=== PATIENT | female | born 1960 | race Caucasian/White ===

== ENCOUNTER 2021-02-14 11:23 | Outpatient (REF) | payer OTHER, SELFPAY ==
--- NOTE | ~2021-02-14 | XR_ITS ---
EXAMINATION: XR KNEE, RIGHT CLINICAL INFORMATION: Right knee pain COMPARISON: None TECHNIQUE: Four views of the right knee. FINDINGS: Bone alignment is normal. No fracture or dislocation is seen. The joint spaces are normal. There is a small joint effusion. XR/XR knee RT 4V IMPRESSION: Small joint effusion otherwise unremarkable exam.
[2021-02-14 13:54] LABS: Hematocrit 39.8 % (37-47); Hemoglobin 13.1 g/dl (12.0-16.0); Mean Corpuscular HGB Conc 32.9 g/dl (31.0-35.0); Mean Corpuscular Hemoglobin 29.8 pg (27.0-33.0); Mean Corpuscular Volume 90.7 fL (80-98); Mean Platelet Volume 10.5 fL (9.4-12.3); Platelet Count 313 X10*3/uL (160-400); Red Blood Count 4.39 X10*6/uL (4.20-5.50); Red Cell Distribution Width 13.4 % (11.0-16.0); White Blood Count 8.6 X10*3/uL (4.8-10.8)
[2021-02-14 14:02] LABS: Alanine Aminotransferase 20 U/L (0-31); Albumin Level 4.1 g/dL (3.5-5.0); Alkaline Phosphatase 41 U/L (39-117); Anion Gap 13 (12-20); Aspartate Amino Transferase 13 U/L (5-31); Bilirubin Total 0.3 mg/dL (0.0-1.0); Blood Urea Nitrogen 13 mg/dL (9-16); Calcium 9.2 mg/dL (8.4-10.2); Carbon Dioxide 23 mmol/L (22-29); Chloride 107 mmol/L (96-108); Cholesterol 176 mg/dL; Estimated Glomerular Filt Rate > 60; Glucose Fasting 91 mg/dL (60-99); HDL Cholesterol 54 mg/dL; LDL Cholesterol Calculated 99 mg/dl; Potassium 4.1 mmol/L (3.3-5.1); Sodium 139 mmol/L (135-145); Total Protein 6.4 g/dL (6.5-8.0); Triglycerides 117 mg/dL
[2021-02-14 14:06] LABS: Appearance Urine HAZY; Color Urine YELLOW; Glucose Urine UA NEG (NEG); Leukocyte Esterase Urine NEG (NEG); Nitrite Urine POS (NEG); Specific Gravity - Urine 1.025 (1.005-1.025); Urine Blood NEG (NEG); Urine Ketones NEG (NEG); Urine Protein NEG (NEG-TRACE)
[2021-02-14 14:24] LABS: TSH reflex Free T4 2.85 uIU/mL (0.32-4.0); Vitamin D 25-OH Total 11.4 ng/mL (>30)
[2021-02-14 14:43] LABS: Bacteria Urine 4+ /LPF; RBC Urine 0 /HPF (0); Squamous Epithelial Cell Urine 4+ /LPF
== END 2021-02-14 11:24 | disposition home or self-care (01) ==
LOC: HO.HMGCLDS 11:23
PROVIDERS: PCP Internal Medicine; Visit Provider Internal Medicine
DX: M25.561 Pain in right knee (principal); E03.9 Hypothyroidism, unspecified; E78.5 Hyperlipidemia, unspecified; I10 Essential (primary) hypertension
CPT/HCPCS: 36415; 73564; 80053; 80061; 81001; 82306; 84443; 85027

== ENCOUNTER 2022-10-30 09:31 | Outpatient (REF) | payer OTHER, SELFPAY ==
[2022-10-30 11:16] LABS: Appearance Urine Turbid; Color Urine Yellow; Glucose Urine UA Negative (Negative); Leukocyte Esterase Urine Negative (Negative); MANUAL DIFF FLAG NO; Nitrite Urine Positive (Negative); PH 5.5 (5.0-9.0); Specific Gravity - Urine 1.025 (1.005-1.025); UMIC TRIGGER UA YES; Urine Blood Negative (Negative); Urine Ketones Negative (Negative); Urine Protein Trace mg/dL (Neg-Trace)
[2022-10-30 11:19] LABS: Bacteria Urine 4+ (None Seen); Hyaline Casts Urine 0-2 /LPF (0-2); Squamous Epithelial Cell Urine >20 /HPF (0-2); WBC Urine 0-5 /HPF (0-5)
[2022-10-30 11:22] LABS: Basophils Percent Auto 0.4 % (0-2); Eosinophils Absolute Auto 0.1 X10*3/uL (0.0-0.4); Eosinophils Percent Auto 1.8 % (0-4); Hematocrit 39.7 % (37.0-47.0); Hemoglobin 12.8 g/dl (12.0-16.0); Imm Gran Abs Auto 0.03 X10*3/uL (0.00-0.03); Imm Gran Pct Auto 0.4 % (0.0-0.4); Lymphocytes Absolute Auto 1.9 X10*3/uL (1.2-4.9); Lymphocytes Percent Auto 26.3 % (20-40); Mean Corpuscular HGB Conc 32.2 g/dl (31.0-35.0); Mean Corpuscular Hemoglobin 29.9 pg (27.0-33.0); Mean Corpuscular Volume 92.8 fL (80.0-98.0); Mean Platelet Volume 11.4 fL (9.4-12.3); Monocytes Absolute Auto 0.7 X10*3/uL (0.1-1.2); Monocytes Percent Auto 9.3 % (2-11); Neutrophils Absolute Auto 4.4 x10*3/uL (2.0-8.3); Neutrophils Percent Auto 61.8 % (45-73); Platelet Count 243 X10*3/uL (160-400); Red Blood Count 4.28 X10*6/uL (4.20-5.50); Red Cell Distribution Width 13.4 % (11.0-16.0); White Blood Count 7.1 X10*3/uL (4.8-10.8)
[2022-10-30 12:07] LABS: Alanine Aminotransferase 18 U/L (0-31); Albumin Level 3.7 g/dL (3.5-5.0); Alkaline Phosphatase 43 U/L (39-117); Anion Gap 8 (12-20); Aspartate Amino Transferase 16 U/L (5-31); Bilirubin Total 0.3 mg/dL (0.0-1.0); Blood Urea Nitrogen 14 mg/dL (9-16); Calcium 9.2 mg/dL (8.4-10.2); Carbon Dioxide 25 mmol/L (22-29); Chloride 107 mmol/L (96-108); Cholesterol 197 mg/dL; Estimated Glomerular Filt Rate > 60; Glucose Fasting 101 mg/dL (60-99); HDL Cholesterol 45 mg/dL; LDL Cholesterol Calculated 123 mg/dl; Potassium 4.6 mmol/L (3.3-5.1); Sodium 135 mmol/L (135-145); Total Protein 6.7 g/dL (6.5-8.0); Triglycerides 145 mg/dL
[2022-10-30 12:19] LABS: TSH reflex Free T4 4.23 uIU/mL (0.32-4.0); Vitamin D 25-OH Total 16.9 ng/mL (>30)
[2022-10-30 14:41] LABS: Free T4 (Free Thyroxine) 0.96 ng/dL (0.71-1.85)
== END 2022-10-30 09:32 | disposition home or self-care (01) ==
LOC: HO.HMGCLDS 09:31
PROVIDERS: PCP Internal Medicine; Visit Provider Internal Medicine
DX: E55.9 Vitamin D deficiency, unspecified (principal); E03.9 Hypothyroidism, unspecified; I10 Essential (primary) hypertension; E78.5 Hyperlipidemia, unspecified
CPT/HCPCS: 36415; 80053; 80061; 81001; 82306; 84439; 84443; 85025

== ENCOUNTER 2023-12-19 09:39 | Outpatient (REF) | payer OTHER, SELFPAY ==
[2023-12-19 14:13] LABS: Alanine Aminotransferase 18 U/L (0-31); Alkaline Phosphatase 37 U/L (39-117); Anion Gap 11 (12-20); Aspartate Amino Transferase 13 U/L (5-31); Bilirubin Total 0.3 mg/dL (0.0-1.0); Blood Urea Nitrogen 13 mg/dL (9-16); Calcium 9.5 mg/dL (8.4-10.2); Carbon Dioxide 27 mmol/L (22-29); Chloride 107 mmol/L (96-108); Cholesterol 204 mg/dL (<200); Estimated Glomerular Filt Rate > 60; Glucose Fasting 105 mg/dL (60-99); HDL Cholesterol 54 mg/dL (>40); LDL Cholesterol Calculated 117 mg/dL (<100); Potassium 3.9 mmol/L (3.3-5.1); Sodium 141 mmol/L (135-145); Total Protein 6.6 g/dL (6.5-8.0); Triglycerides 166 mg/dL (<150)
== END 2023-12-19 09:40 | disposition home or self-care (01) ==
LOC: HO.HMGCLDS 09:39
PROVIDERS: PCP Internal Medicine; Visit Provider Internal Medicine
DX: E78.5 Hyperlipidemia, unspecified (principal); I10 Essential (primary) hypertension; E03.9 Hypothyroidism, unspecified
CPT/HCPCS: 36415; 80053; 80061; 84443

== ENCOUNTER 2023-12-24 12:35 | Outpatient (AMB) | payer OTHER, SELFPAY ==
[2023-12-24 13:15] VITALS: BP 124/82; PULSE 90; O2SAT 95; BMI 37.4
--- NOTE | 2023-12-24 13:15 | MHC.PC.OV ---
Vital Signs 12/24/23 13:15 Height 5 ft 6 in Weight 232 lb BMI 37.4 BP 124/82 Blood Pressure Location Lt brachial Position Sitting Pulse 90 Pulse Source Pulse Oximeter Pulse Oximetry (%) 95 Oxygen Delivery Method Room Air Intake Visit Reasons: med f/u Intake Note: Pt is here today for a follow up visit on labs. Pt needs a refill on her medications. Allergies lisinopril Adverse Reaction (Intermediate, Verified 12/24/23 13:16) Cough losartan Adverse Reaction (Intermediate, Verified 12/24/23 13:16) Cough Medication List - Last Reconciled 12/24/23 by Amber Pace MD citalopram 10 mg PO DAILY ergocalciferol (vitamin D2) 1,250 mcg PO QWEEK fenofibrate nanocrystallized 145 mg PO DAILY levothyroxine 50 mcg PO DAILY metoprolol succinate ER 100 mg PO DAILY nifedipine ER 90 mg PO DAILY terazosin 20 mg (2 x 10 mg) PO BEDTIME triamterene-hydrochlorothiazid 37.5-25 mg 1 cap PO DAILY Tobacco use date assessed: 12/24/23 Dental Screening Dental Screen Date: 12/24/23 Did you have a dental visit in the last 12 months?: Yes Did you have a dental problem in the last 6 months where you did not have access to dental care?: No Was dental information given to patient?: Patient has dentist HPI med f/u HPI Details Patient presents for the follow-up on hypertension hypothyroidism hyperlipidemia controlled on current medications. She was diagnosed with 75% hearing loss. Patient reports chronic lower extremities edema worse when sitting for long time or at the end of the day. [facility] Medical History (Updated 12/24/23 @ 14:14 by Amber Pace MD) Normal breast exam Vitamin D deficiency Hypothyroidism Knee pain, right Hyperlipidemia HTN (hypertension) Hx of fracture of forearm Surgical History (Updated 12/24/23 @ 14:09 by Amber Pace MD) Hx of colonoscopy Family History Father Hypertension Mother Cancer of large intestine Social History Housing: House Patient Tobacco Use Status: Never used Tobacco e-Cigarette/Vaping Use: Never Used service: No Current occupational status: employed Cognitive needs: No Hearing needs: No Vision needs: No Questionnaire PHQ-9 Over the last 2 weeks, how often have you been bothered by any of the following problems? 1. Little interest or pleasure in doing things: several days 2. Feeling down, depressed, or hopeless: several days 3. Trouble falling or staying asleep, or sleeping too much: not at all 4. Feeling tired or having little energy: several days 5. Poor appetite or overeating: several days 6. Feeling bad about yourself - or that you are a failure or have let yourself or your family down: not at all 7. Trouble concentrating on things, such as reading the newspaper or watching television: not at all 8. Moving or speaking so slowly that other people could have noticed. Or the opposite - being so fidgety or restless that you have been moving around a lot more than usual: several days 9. Thoughts that you would be better off or of hurting yourself in some way: not at all Total score: 5 Depression Screening Interpretation: Negative Depression Screening Done: Yes 93644 - PHQ-9 Billing: Yes Source: Developed by Drs. Kevin Choudhary, Temi Mccauley, Boni Scanlon and colleagues, with an educational farzad from [employer]. Thrive Questionnaire Date Thrive assessed: 12/24/23 I am a: Patient What is your living situation today?: I have a steady place to live Within the past 12 months, did the food you bought not last and you didn't have the money to get more?: Often true Within the past 12 months, did you worry whether your food would run out before you got money to buy more?: Sometimes True Do you have trouble paying for medicines?: No Do you have trouble getting transportation to medical appointments?: Yes Do you have trouble paying your heating and electricity bill?: No Do you have trouble taking care of your child, family member or friend?: No Do you have trouble with day-to-day activities such as bathing, preparing meals, shopping, managing finances, etc.?: No Are you currently unemployed and looking for a job?: Yes Are you interested in more education?: I choose not to answer this question Please select the resources that you would like help with: None Currently or been in a relationship where the following occur: Controlled Financially THRIVE Score: 4 AUDIT C Alcohol Use Questionnaire (AUDIT-C) 1. How often do you have a drink containing alcohol?: 2-4 times a month 2. How many drinks containing alcohol do you have on a typical day when you are drinking?: 3 or 4 3. How often do you have six or more drinks on one occasion?: Never Total Score: 3 BERNICE-7 AMB Questionnaire BERNICE-7 Date BERNICE - 7 assessed: 12/24/23 Feeling nervous, anxious, or on edge: 0 = Not at all Not being able to stop or control worryin = Several days Worrying too much about different things: 1 = Several days Trouble relaxin = Several days Being so restless that it is hard to sit still: 0 = Not at all Becoming easily annoyed or irritable: 0 = Not at all Feeling afraid as if something awful might happen: 0 = Not at all Total BERNICE-7 score (0-4 normal; 5-9 mild; 10-14 moderate; 15-21 severe): 3 Source: Developed by Drs. Kevin Choudhary, Temi Mccauley, Boni Scanlon and colleagues, with an educational farzad from [employer]. BERNICE-7 Assessment Billing BERNICE-7 Assessment Tool: BERNICE-7 Assessment 52947 Review of Systems Const All systems reviewed & are unremarkable except as noted in HPI and below ENT Reports no additional complaints Card Reports no additional complaints Resp Reports no additional complaints GI Reports no additional complaints Reports no additional complaints Physical exam (Primary Care) Vital Signs: Last Vital Signs Pulse 90 12/24/23 13:15 BP 124/82 12/24/23 13:15 Pulse Ox 95 12/24/23 13:15 Oxygen Delivery Method Room Air 12/24/23 13:15 BMI result Body Mass Index 37.4 Tobacco/Smoking Status: Tobacco use Status Tobacco use date assessed 12/24/23 12/24/23 13:17 Patient Tobacco Use Status Never used Tobacco 12/24/23 13:17 e-Cigarette/Vaping Use Never Used 12/24/23 13:17 PHQ-9: PHQ-9 Score PHQ-9: Total score 5 12/24/23 13:17 Depression Screening Interpretation: Negative Thrive Assessment: Date of Thrive Assessment Date Thrive assessed 12/24/23 12/24/23 13:17 Currently or been in a relationship where the following occur: Controlled Financially Const General: no acute distress HENMT Face and sinus: Yes normal facial exam Neck Neck: Yes supple Resp Effort & Inspection: normal respiratory effort Auscultation: clear to auscultation bilaterally Cardio Rhythm: regular rhythm Heart sounds: S1 normal heart sound present and S2 normal heart sound present GI Inspection: Yes normal to inspection Palpation (GI): Soft to palpation Percussion: Yes normal to percussion Auscultation: normal bowel sounds Extrem Other: 2 + nonpitting edema b/l Assessment and Plan Assessment & Plan (1) HTN (hypertension): Code(s): I10 - Essential (primary) hypertension Plan: Continue current medications (2) Edema: Code(s): R60.9 - Edema, unspecified Plan: Continue Dyazide, check echocardiogram (3) Vitamin D deficiency: Code(s): E55.9 - Vitamin D deficiency, unspecified Plan: Check vitamin-D (4) Hyperlipidemia: Code(s): E78.5 - Hyperlipidemia, unspecified (5) Hypothyroidism: Code(s): E03.9 - Hypothyroidism, unspecified Plan: Continue fenofibrate (6) Obesity: Code(s): E66.9 - Obesity, unspecified Plan: Increase physical activity decrease caloric intake weight loss discussed with the patient, return in 6 months with a fasting labs before Orders: Orders CA echo transthoracic complete Today I10 - Essential (primary) hypertension, R60.9 - Edema, unspecified Vitamin D 25-OH Total Today E55.9 - Vitamin D deficiency, unspecified Comprehensive [place]. Panel Fast 6 Months E03.9 - Hypothyroidism, unspecified, E55.9 - Vitamin D deficiency, unspecified, E78.5 - Hyperlipidemia, unspecified, I10 - Essential (primary) hypertension Lipid Panel 6 Months E03.9 - Hypothyroidism, unspecified, E55.9 - Vitamin D deficiency, unspecified, E78.5 - Hyperlipidemia, unspecified, I10 - Essential (primary) hypertension TSH reflex Free T4 6 Months E03.9 - Hypothyroidism, unspecified, E55.9 - Vitamin D deficiency, unspecified, E78.5 - Hyperlipidemia, unspecified, I10 - Essential (primary) hypertension MM screening mammo BI Today I10 - Essential (primary) hypertension, R60.9 - Edema, unspecified, Z12.31 - Encounter for screening mammogram for malignant neoplasm of breast Complete Blood Count Auto Diff 6 Months E03.9 - Hypothyroidism, unspecified, E55.9 - Vitamin D deficiency, unspecified, E78.5 - Hyperlipidemia, unspecified, I10 - Essential (primary) hypertension Hemoglobin A1c 6 Months E03.9 - Hypothyroidism, unspecified, E55.9 - Vitamin D deficiency, unspecified, E78.5 - Hyperlipidemia, unspecified, I10 - Essential (primary) hypertension Vitamin D 25-OH Total 6 Months E03.9 - Hypothyroidism, unspecified, E55.9 - Vitamin D deficiency, unspecified, E78.5 - Hyperlipidemia, unspecified, I10 - Essential (primary) hypertension Medications: Refilled terazosin 20 mg (2 x 10 mg) PO BEDTIME 90 caps 3RF nifedipine ER 90 mg PO DAILY 90 tabs 3RF citalopram 10 mg PO DAILY 90 tabs 3RF levothyroxine 50 mcg PO DAILY 90 tabs 3RF ergocalciferol (vitamin D2) 1,250 mcg PO QWEEK 13 caps 3RF Coding Level of Care Code Est Pt Level 4 (85967) Diagnoses HTN (hypertension) I10 Edema R60.9 Vitamin D deficiency E55.9 Hyperlipidemia E78.5 Hypothyroidism E03.9 Obesity E66.9 Additional Codes BERNICE-7 Assessment Billing - BERNICE-7 Assessment Tool: BERNICE-7 Assessment 88955 ([id number])
== END 2023-12-24 14:14 | disposition home or self-care (01) ==
PROVIDERS: PCP Internal Medicine; Visit Provider Internal Medicine
DX: I10 Essential (primary) hypertension (principal); E66.9 Obesity, unspecified; R60.9 Edema, unspecified; Z68.37 Body mass index [BMI] 37.0-37.9, adult; E55.9 Vitamin D deficiency, unspecified; E78.5 Hyperlipidemia, unspecified; E03.9 Hypothyroidism, unspecified
CPT/HCPCS: 99214

== ENCOUNTER 2023-12-24 14:03 | Outpatient (REF) | payer OTHER, SELFPAY ==
[2023-12-24 17:38] LABS: Vitamin D 25-OH Total 35.3 ng/mL (>30)
== END 2023-12-24 14:04 | disposition home or self-care (01) ==
LOC: HO.HMGCLDS 14:03
PROVIDERS: PCP Internal Medicine; Visit Provider Internal Medicine
DX: E55.9 Vitamin D deficiency, unspecified (principal)
CPT/HCPCS: 36415; 82306

== ENCOUNTER 2024-01-09 09:00 | Outpatient (REF) | payer OTHER, SELFPAY ==
--- NOTE | ~2024-01-09 | MM_ITS ---
EXAMINATION: MM SCREENING DIGITAL BREAST TOMOSYNTHESIS, BILATERAL CLINICAL INFORMATION: Screening. Asymptomatic. COMPARISON: Mammography: Comparison is made with available priors TECHNIQUE: Digital breast mammography with tomosynthesis is performed in both the craniocaudal and mediolateral oblique views along with computer-aided detection (CAD). FINDINGS: There are scattered areas of fibroglandular density (ACR BI-RADS breast composition Category b). There are no significant masses, abnormal calcifications, or other abnormalities. MM/MM tomosynthesis screening BI IMPRESSION: No mammographic evidence of malignancy. ASSESSMENT: BI-RADS BI-RADS 1 - Negative RECOMMENDATION: Routine annual mammography screening. 1 year F/U This examination should not preclude the clinical evaluation of a suspicious palpable abnormality. This patient's information was entered into a reminder system with a target due date for their next mammogram. Electronically signed by: Rain Cole DO 01/25/2024 03:12 PM EDT
== END 2024-01-09 09:01 | disposition home or self-care (01) ==
LOC: HO.MAMMO 09:00
PROVIDERS: PCP Internal Medicine; Visit Provider Internal Medicine
DX: Z12.31 Encounter for screening mammogram for malignant neoplasm of breast (principal)
CPT/HCPCS: 77063; 77067

== ENCOUNTER → 2024-01-09 09:00 | Outpatient (BNV) | payer OTHER, SELFPAY | PROVIDERS: PCP Internal Medicine; Visit Provider Internal Medicine | DX: Z12.31 Encounter for screening mammogram for malignant neoplasm of breast (principal) | CPT/HCPCS: 77063; 77067 ==

== ENCOUNTER → 2024-01-26 14:02 | Outpatient (REF) | payer OTHER, SELFPAY ==
--- NOTE | 2024-01-26 14:05 | CA_ITS ---
Transthoracic Echocardiogram Patient (Last, First, Middle): Laura Rosales, Gender: Female Date of : 1960 Age: 63 Procedure Date: 01/26/2024 Procedure Type: Transthoracic Echocardiogram Location: OP Height: 167.64 cm Weight: 105.24 kg BSA: 2.13 m2 Heart Rate: 101 bpm BP: 124 / 60 mmHg Web Site Manager: SB Referring MD: Amber Pace MD Symptoms: I10 - Essential (primary) hypertension Study Quality: Technically Difficult ECG Rhythm: Tachycardia Conclusions: - The left ventricular systolic function is hyperdynamic. The visually estimated ejection fraction is >70%. - No obvious valvular pathology seen on this study. - There is mild dilatation of the ascending aorta measuring 4.10 cm. Findings Procedure Information Contrast agent, definity, is being given per protocol without apparent complications. The quality of the study was technically difficult. The study quality is limited by patients body habitus and lung artifact. Left Ventricle Normal left ventricular cavity size. There is normal left ventricular wall thickness. The left ventricular systolic function is hyperdynamic. The visually estimated ejection fraction is >70%. There is no evidence of regional wall motion abnormalities. Evidence suggests grade I (mild) diastolic dysfunction. Right Ventricle Normal right ventricular cavity size and systolic function. Atria Both atria are normal in size. Aortic Valve The aortic valve was not well visualized. There is no aortic valve stenosis. There is no aortic valve regurgitation. Mitral Valve The mitral valve appears normal. There is no mitral valve regurgitation. There is no mitral valve stenosis. Pulmonic Valve The pulmonic valve is likely normal. Tricuspid Valve There is no tricuspid valve regurgitation. Tricuspid regurgitation envelope is inadequate for calculation of right ventricular systolic pressure. Great Vessels There is mild dilatation of the ascending aorta measuring 4.10 cm. Venous The inferior vena cava was not well visualized. The inferior vena cava is mildly dilated. Pericardium/Pleural There are no definitive echocardiographic findings of tamponade physiology. Small to moderate circumferential pericardial effusion with suggestion of exudative material. No definitive evidence of tamponade. Prior Study Comparison No prior study available for comparison. Recommendations, Care & Conclusions No obvious valvular pathology seen on this study. Measurements 2D Linear Measurements IVSd: 0.98 0.6-0.9/0.6-1.0 cm LVIDd: 4.50 3.9-5.3/4.2-5.9 cm LVIDd Index: 2.11 2.4-3.2/2.2-3.1 cm/m2 LVIDs: 3.19 2.0-3.6 cm LVPWd: 1.03 0.7-1.1 cm LA Diam: 3.90 2.7-3.8/3.0-4.0 cm LAIDs Index: 1.83 1.5-2.3 cm/m2 LV Mass: 192.29 67-162/88-224 g LV Mass Index: 90.28 43-95/49-115 g/m2 LVOT Diam: 2.30 3.0+(-)1.3 cm 2D Systolic Function EF 4C: 81.40 >55% Mitral Valve MV Pk E: 0.66 MV PK A: 0.87 MV Decel Time: 280.00 E/A: 0.80 E'Lateral: 6.09 E'Medial: 7.18 E/E' Med: 9.10 E/E' Lat: 10.80 PHT: 82.00 MVA PHT: 2.68 Decel Ber[place]: 2.34 Aortic Valve AoV Pk Aidan: 1.43 AoV Pk Grad: 8.00 PERLITA: 3.29 LVOT LVOT Pk Aidan: 1.14 LVOT Mn Aidan: 0.83 LVOT VTI: 0.19 LVOT Pk Grad: 5.00 LVOT Mn Grad: 3.00 LVOT Diam: 2.30 LVOT Area: 4.15 Diastolic Function MV Pk E: 0.66 MV Pk A: 0.87 E/A: 0.80 E'Medial: 7.18 E/E' Med: 9.10 E' Laterial: 6.09 E/E' Lat: 10.80 Right Ventricle TAPSE (mm): 19.80 TVS' Aidan: 14.30 Tricuspid Valve RA Press: 8.00 Great Vessels Aorta Sinus of Valsalva: 3.90 2.0-3.5 cm Ao Asc: 4.10 2.1-3.4 cm Pulmonary Valve PV Pk Aidan: 1.20 Peak PV Grad: 6.00 Updated in Other Vendor System with Status of Final Rosalino Mendez MD electronically signed on 01/27/2024 11:04:44 AM with status of Final
== END ==
LOC: HO.CARD 14:02
PROVIDERS: PCP Internal Medicine; Visit Provider Internal Medicine
DX: I10 Essential (primary) hypertension (principal); R60.9 Edema, unspecified
CPT/HCPCS: 93306; Q9957

== ENCOUNTER → 2024-01-26 14:05 | Outpatient (BNV) | payer OTHER, SELFPAY | PROVIDERS: PCP Internal Medicine; Visit Provider Internal Medicine | DX: I51.89 Other ill-defined heart diseases (principal); R93.1 Abnormal findings on diagnostic imaging of heart and coronary circulation | CPT/HCPCS: 93306 ==

== ENCOUNTER 2024-04-16 10:35 | Outpatient (AMB) | payer OTHER, SELFPAY ==
[2024-04-16 10:37] VITALS: BP 126/80; PULSE 76; O2SAT 96; BMI 37.1
--- NOTE | 2024-04-16 10:37 | MHC.PC.OV ---
Vital Signs 04/16/24 10:37 Height 5 ft 6 in Weight 230 lb BMI 37.1 BP 126/80 Blood Pressure Location Lt brachial Position Sitting Pulse 76 Pulse Source Pulse Oximeter Pulse Oximetry (%) 96 Oxygen Delivery Method Room Air Intake Visit Reasons: f/u echo Intake Note: Pt is here today for a follow up visit on echo results. Allergies lisinopril Adverse Reaction (Intermediate, Verified 04/16/24 10:40) Cough losartan Adverse Reaction (Intermediate, Verified 04/16/24 10:40) Cough Medication List - Last Reconciled 04/16/24 by Amber Pace MD citalopram 10 mg PO DAILY ergocalciferol (vitamin D2) 1,250 mcg PO QWEEK fenofibrate nanocrystallized 145 mg PO DAILY levothyroxine 50 mcg PO DAILY metoprolol succinate ER 100 mg PO DAILY nifedipine ER 90 mg PO DAILY terazosin 20 mg (2 x 10 mg) PO BEDTIME triamterene-hydrochlorothiazid 37.5-25 mg 1 cap PO DAILY Tobacco use date assessed: 12/24/23 Dental Screening Dental Screen Date: 12/24/23 HPI f/u echo HPI Details Pt presents for f/u HTN, hypothyroid, hyperlipid, stable on meds, PFSH Medical History Normal breast exam Vitamin D deficiency Hypothyroidism Knee pain, right Hyperlipidemia HTN (hypertension) Hx of fracture of forearm Surgical History Hx of colonoscopy Family History Father Hypertension Mother Cancer of large intestine Social History Housing: House Patient Tobacco Use Status: Never used Tobacco e-Cigarette/Vaping Use: Never Used service: No Current occupational status: employed Cognitive needs: No Hearing needs: No Vision needs: No Questionnaire Thrive Questionnaire Date Thrive assessed: 04/16/24 I am a: Patient What is your living situation today?: I have a steady place to live Within the past 12 months, did the food you bought not last and you didn't have the money to get more?: Often true Within the past 12 months, did you worry whether your food would run out before you got money to buy more?: Sometimes True Do you have trouble paying for medicines?: No Do you have trouble getting transportation to medical appointments?: Yes Do you have trouble paying your heating and electricity bill?: No Do you have trouble taking care of your child, family member or friend?: No Do you have trouble with day-to-day activities such as bathing, preparing meals, shopping, managing finances, etc.?: No Are you currently unemployed and looking for a job?: Yes Are you interested in more education?: I choose not to answer this question Please select the resources that you would like help with: None Currently or been in a relationship where the following occur: Controlled Financially THRIVE Score: 4 AUDIT C Alcohol Use Questionnaire (AUDIT-C) 1. How often do you have a drink containing alcohol?: Never 3. How often do you have six or more drinks on one occasion?: Never Total Score: 0 BERNICE-7 AMB Questionnaire BERNICE-7 Date BERNICE - 7 assessed: 12/24/23 Source: Developed by Drs. Kevin Choudhary, Temi Mccauley, Boni Scanlon and colleagues, with an educational farzad from [employer]. Review of Systems Const All systems reviewed & are unremarkable except as noted in HPI and below Eyes Reports no additional complaints ENT Reports no additional complaints Card Reports no additional complaints Resp Reports no additional complaints GI Reports no additional complaints Reports no additional complaints Physical exam (Primary Care) Vital Signs: Last Vital Signs Pulse 76 04/16/24 10:37 BP 126/80 04/16/24 10:37 Pulse Ox 96 04/16/24 10:37 Oxygen Delivery Method Room Air 04/16/24 10:37 BMI result Body Mass Index 37.1 Tobacco/Smoking Status: Tobacco use Status Tobacco use date assessed 12/24/23 04/16/24 10:42 Patient Tobacco Use Status Never used Tobacco 04/16/24 10:42 e-Cigarette/Vaping Use Never Used 04/16/24 10:42 Thrive Assessment: Date of Thrive Assessment Date Thrive assessed 04/16/24 04/16/24 10:42 Currently or been in a relationship where the following occur: Controlled Financially Const General: no acute distress HENMT Head: Yes normal to inspection Face and sinus: Yes normal facial exam Neck Neck: Yes supple Resp Effort & Inspection: normal respiratory effort Auscultation: clear to auscultation bilaterally Cardio Rhythm: regular rhythm Heart sounds: S1 normal heart sound present and S2 normal heart sound present GI Inspection: Yes normal to inspection Palpation (GI): Soft to palpation Percussion: Yes normal to percussion Auscultation: normal bowel sounds Coding Level of Care Code Est Pt Level 4 (96007) Diagnoses Hypothyroidism E03.9 Hyperlipidemia E78.5 HTN (hypertension) I10 Obesity E66.9 Assessment & Plan Assessment & Plan (1) Hypothyroidism: Code(s): E03.9 - Hypothyroidism, unspecified Category: Medical Plan: Continue levothyroxine (2) Hyperlipidemia: Code(s): E78.5 - Hyperlipidemia, unspecified Category: Medical Plan: Continue statin (3) HTN (hypertension): Comment: Echocardiogram normal ejection fraction normal valves 02/2024 Code(s): I10 - Essential (primary) hypertension Category: Medical Plan: Continue current medications (4) Obesity: Code(s): E66.9 - Obesity, unspecified Category: Medical Plan: Decrease caloric intake increase physical activity and weight loss discussed with the patient Medications: Refilled levothyroxine 50 mcg PO DAILY 90 tabs 3RF terazosin 20 mg (2 x 10 mg) PO BEDTIME 90 caps 3RF nifedipine ER 90 mg PO DAILY 90 tabs 3RF metoprolol succinate ER 100 mg PO DAILY 90 tabs 3RF triamterene-hydrochlorothiazid 37.5-25 mg 1 cap PO DAILY 90 caps 3RF citalopram 10 mg PO DAILY 90 tabs 3RF fenofibrate nanocrystallized 145 mg PO DAILY 90 tabs 3RF
== END 2024-04-16 11:20 | disposition home or self-care (01) ==
PROVIDERS: PCP Internal Medicine; Visit Provider Internal Medicine
DX: E03.9 Hypothyroidism, unspecified (principal); E78.5 Hyperlipidemia, unspecified; E66.9 Obesity, unspecified; Z68.37 Body mass index [BMI] 37.0-37.9, adult; I10 Essential (primary) hypertension

== ENCOUNTER 2024-04-16 10:35 | Outpatient (REF) | payer OTHER, SELFPAY ==
[2024-04-16 13:11] LABS: MANUAL DIFF FLAG NO
[2024-04-16 13:30] LABS: Basophils Percent Auto 0.4 % (0-2); Eosinophils Absolute Auto 0.1 X10*3/uL (0.0-0.4); Eosinophils Percent Auto 1.7 % (0-4); Hematocrit 40.8 % (37.0-47.0); Hemoglobin 13.6 g/dl (12.0-16.0); Imm Gran Abs Auto 0.03 X10*3/uL (0.00-0.03); Imm Gran Pct Auto 0.4 % (0.0-0.4); Lymphocytes Absolute Auto 2.4 X10*3/uL (1.2-4.9); Lymphocytes Percent Auto 30.5 % (20-40); Mean Corpuscular HGB Conc 33.3 g/dl (31.0-35.0); Mean Corpuscular Hemoglobin 30.1 pg (27.0-33.0); Mean Corpuscular Volume 90.3 fL (80.0-98.0); Monocytes Absolute Auto 0.7 X10*3/uL (0.1-1.2); Monocytes Percent Auto 8.6 % (2-11); Neutrophils Absolute Auto 4.6 x10*3/uL (2.0-8.3); Neutrophils Percent Auto 58.4 % (45-73); Platelet Count 278 X10*3/uL (160-400); Red Blood Count 4.52 X10*6/uL (4.20-5.50); Red Cell Distribution Width 12.8 % (11.0-16.0); White Blood Count 7.8 X10*3/uL (4.8-10.8)
[2024-04-16 14:00] LABS: Alanine Aminotransferase 15 U/L (0-31); Albumin Level 4.1 g/dL (3.5-5.0); Alkaline Phosphatase 39 U/L (39-117); Anion Gap 10 (12-20); Aspartate Amino Transferase 17 U/L (5-31); Bilirubin Total 0.3 mg/dL (0.0-1.0); Blood Urea Nitrogen 20 mg/dL (9-16); Calcium 9.2 mg/dL (8.4-10.2); Carbon Dioxide 24 mmol/L (22-29); Chloride 110 mmol/L (96-108); Cholesterol 181 mg/dL (<200); Estimated Glomerular Filt Rate > 60; Glucose Fasting 104 mg/dL (60-99); HDL Cholesterol 54 mg/dL (>40); LDL Cholesterol Calculated 106 mg/dL (<100); Potassium 3.9 mmol/L (3.3-5.1); Sodium 140 mmol/L (135-145); Total Protein 6.7 g/dL (6.5-8.0); Triglycerides 107 mg/dL (<150)
[2024-04-16 14:01] LABS: TSH reflex Free T4 2.97 uIU/mL (0.32-4.0); Vitamin D 25-OH Total 34.8 ng/mL (>30)
[2024-04-16 14:04] LABS: Estimated Average Glucose 117 mg/dL; Hemoglobin A1C 142.6128 umol/L; Hemoglobin A1c % 5.7 % (<6.0); Total Hemoglobin (HGBA1C) 3649.2639 umol/L
== END 2024-04-16 10:36 | disposition home or self-care (01) ==
LOC: HO.HMGCLDS 10:35
PROVIDERS: PCP Internal Medicine; Visit Provider Internal Medicine
DX: Z13.1 Encounter for screening for diabetes mellitus (principal); E03.9 Hypothyroidism, unspecified; E78.5 Hyperlipidemia, unspecified; E66.9 Obesity, unspecified; I10 Essential (primary) hypertension
CPT/HCPCS: 36415; 80053; 80061; 82306; 83036; 84443; 85025

== ENCOUNTER 2024-08-09 09:41 | Outpatient (AMB) | payer OTHER, SELFPAY ==
--- NOTE | 2024-08-09 09:52 | A.OFFPC_ITS ---
Intake Visit Reasons: AWV/can have a ANNUAL Allergies lisinopril Adverse Reaction (Intermediate, Verified 04/16/24 10:40) Cough losartan Adverse Reaction (Intermediate, Verified 04/16/24 10:40) Cough Tobacco use date assessed: 12/24/23 Dental Screening Dental Screen Date: 12/24/23 [facility] Medical History Normal breast exam Vitamin D deficiency Hypothyroidism Knee pain, right Hyperlipidemia HTN (hypertension) Hx of fracture of forearm Surgical History Hx of colonoscopy Family History Father Hypertension Mother Cancer of large intestine Social History Housing: House Patient Tobacco Use Status: Never used Tobacco e-Cigarette/Vaping Use: Never Used service: No Current occupational status: employed Cognitive needs: No Hearing needs: No Vision needs: No Questionnaire Thrive Questionnaire Date Thrive assessed: 08/09/24 BERNICE-7 AMB Questionnaire BERNICE-7 Date BERNICE - 7 assessed: 12/24/23 Source: Developed by Drs. Kevin Choudhary, Temi Mccauley, Boni Scanlon and colleagues, with an educational farzad from [employer]. Physical exam (Primary Care) Tobacco/Smoking Status: Tobacco use Status Tobacco use date assessed 12/24/23 04/16/24 10:42 Patient Tobacco Use Status Never used Tobacco 04/16/24 10:42 e-Cigarette/Vaping Use Never Used 04/16/24 10:42 Thrive Assessment: Date of Thrive Assessment Date Thrive assessed 08/09/24 08/09/24 09:42 Coding
[2024-08-09 09:53] VITALS: BP 132/80; PULSE 84; RESP 20; TEMP 37.2; O2SAT 94; BMI 37.1
--- NOTE | 2024-08-09 09:53 | A.OFFVIS_ITS ---
Intake Vital Signs 08/09/24 09:53 Height 5 ft 6 in Weight 230 lb BMI 37.1 BP 132/80 Blood Pressure Location Rt brachial Position Sitting Respiration 20 Pulse 84 Pulse Source Pulse Oximeter Temp 98.9 F Temp Source Oral Pulse Oximetry (%) 94 Oxygen Delivery Method Room Air Intake Visit Reasons: AWV/can have a ANNUAL Intake Note: Pt is here today for AWV. Allergies lisinopril Adverse Reaction (Intermediate, Verified 08/09/24 09:53) Cough losartan Adverse Reaction (Intermediate, Verified 08/09/24 09:53) Cough PFSH Medical History Normal breast exam Vitamin D deficiency Hypothyroidism Knee pain, right Hyperlipidemia HTN (hypertension) Hx of fracture of forearm Surgical History Hx of colonoscopy Family History Father Hypertension Mother Cancer of large intestine Social History Housing: House Patient Tobacco Use Status: Never used Tobacco e-Cigarette/Vaping Use: Never Used service: No Current occupational status: employed Cognitive needs: No Hearing needs: No Vision needs: No Questionnaire PHQ-9 Over the last 2 weeks, how often have you been bothered by any of the following problems? 1. Little interest or pleasure in doing things: several days 2. Feeling down, depressed, or hopeless: several days 3. Trouble falling or staying asleep, or sleeping too much: not at all 4. Feeling tired or having little energy: several days 5. Poor appetite or overeating: several days 6. Feeling bad about yourself - or that you are a failure or have let yourself or your family down: not at all 7. Trouble concentrating on things, such as reading the newspaper or watching television: not at all 8. Moving or speaking so slowly that other people could have noticed. Or the opposite - being so fidgety or restless that you have been moving around a lot more than usual: several days 9. Thoughts that you would be better off or of hurting yourself in some way: not at all Total score: 5 Depression Screening Interpretation: Negative Depression Screening Done: Yes 59020 - PHQ-9 Billing: Yes Source: Developed by Drs. Kevin Choudhary, Temi Mccauley, Boni Scanlon and colleagues, with an educational farzad from [employer]. Quality Reporting (2019) Depression/Bipolar (159/160/161/177) PHQ-9: Total score: 5 Coding Additional Codes PHQ-9 - 86563 - PHQ-9 Billing: Yes ([id number])
--- NOTE | 2024-08-09 10:03 | MHC.PC.OV ---
Vital Signs 08/09/24 09:53 Height 5 ft 6 in Weight 230 lb BMI 37.1 BP 132/80 Blood Pressure Location Rt brachial Position Sitting Respiration 20 Pulse 84 Pulse Source Pulse Oximeter Temp 98.9 F Temp Source Oral Pulse Oximetry (%) 94 Oxygen Delivery Method Room Air Intake Visit Reasons: PE. Intake Note: Pt is here today for PE. Allergies lisinopril Adverse Reaction (Intermediate, Verified 08/09/24 10:04) Cough losartan Adverse Reaction (Intermediate, Verified 08/09/24 10:04) Cough Medication List - Last Reconciled 08/09/24 by Amber Pace MD citalopram 10 mg PO DAILY ergocalciferol (vitamin D2) 1,250 mcg PO QWEEK fenofibrate nanocrystallized 145 mg PO DAILY levothyroxine 50 mcg PO DAILY metoprolol succinate ER 100 mg PO DAILY nifedipine ER 90 mg PO DAILY terazosin 20 mg (2 x 10 mg) PO BEDTIME triamterene-hydrochlorothiazid 37.5-25 mg 1 cap PO DAILY Tobacco use date assessed: 08/09/24 Dental Screening Dental Screen Date: 08/09/24 Did you have a dental visit in the last 12 months?: No Did you have a dental problem in the last 6 months where you did not have access to dental care?: No Was dental information given to patient?: Patient declined HPI PE. HPI Details Pt presents for PE PFSH Medical History Normal breast exam Vitamin D deficiency Hypothyroidism Knee pain, right Hyperlipidemia HTN (hypertension) Hx of fracture of forearm Surgical History Hx of colonoscopy Family History Father Hypertension Mother Cancer of large intestine Social History Housing: House Patient Tobacco Use Status: Never used Tobacco e-Cigarette/Vaping Use: Never Used service: No Current occupational status: employed Cognitive needs: No Hearing needs: No Vision needs: No Questionnaire PHQ-9 Over the last 2 weeks, how often have you been bothered by any of the following problems? 1. Little interest or pleasure in doing things: not at all 2. Feeling down, depressed, or hopeless: not at all 3. Trouble falling or staying asleep, or sleeping too much: not at all 4. Feeling tired or having little energy: not at all 5. Poor appetite or overeating: not at all 6. Feeling bad about yourself - or that you are a failure or have let yourself or your family down: not at all 7. Trouble concentrating on things, such as reading the newspaper or watching television: not at all 8. Moving or speaking so slowly that other people could have noticed. Or the opposite - being so fidgety or restless that you have been moving around a lot more than usual: not at all 9. Thoughts that you would be better off or of hurting yourself in some way: not at all Total score: 0 Depression Screening Interpretation: Negative Depression Screening Done: Yes 50145 - PHQ-9 Billing: Yes Source: Developed by Drs. Kevin Choudhary, Temi Mccauley, Boni Scanlon and colleagues, with an educational farzad from [employer]. Thrive Questionnaire Date Thrive assessed: 08/09/24 I am a: Patient What is your living situation today?: I have a steady place to live Within the past 12 months, did the food you bought not last and you didn't have the money to get more?: Never true Within the past 12 months, did you worry whether your food would run out before you got money to buy more?: Never true Do you have trouble paying for medicines?: No Do you have trouble getting transportation to medical appointments?: No Do you have trouble paying your heating and electricity bill?: No Do you have trouble taking care of your child, family member or friend?: No Do you have trouble with day-to-day activities such as bathing, preparing meals, shopping, managing finances, etc.?: No Are you currently unemployed and looking for a job?: No Are you interested in more education?: No THRIVE Score: 0 AUDIT C Alcohol Use Questionnaire (AUDIT-C) 1. How often do you have a drink containing alcohol?: Never 3. How often do you have six or more drinks on one occasion?: Never Total Score: 0 BERNICE-7 AMB Questionnaire BERNICE-7 Date BERNICE - 7 assessed: 08/09/24 Feeling nervous, anxious, or on edge: 0 = Not at all Not being able to stop or control worryin = Not at all Worrying too much about different things: 0 = Not at all Trouble relaxin = Not at all Being so restless that it is hard to sit still: 0 = Not at all Becoming easily annoyed or irritable: 0 = Not at all Feeling afraid as if something awful might happen: 0 = Not at all Total BERNICE-7 score (0-4 normal; 5-9 mild; 10-14 moderate; 15-21 severe): 0 Source: Developed by Drs. Kevin Choudhary, Temi Mccauley, Boni Scanlon and colleagues, with an educational farzad from [employer]. BERNICE-7 Assessment Billing BERNICE-7 Assessment Tool: BERNICE-7 Assessment 46303 Review of Systems Const All systems reviewed & are unremarkable except as noted in HPI and below Eyes Reports no additional complaints ENT Reports no additional complaints Card Reports no additional complaints Resp Reports no additional complaints GI Reports no additional complaints Reports no additional complaints Physical exam (Primary Care) Vital Signs: Last Vital Signs Temp 98.9 F 08/09/24 09:53 Pulse 84 08/09/24 09:53 Resp 20 08/09/24 09:53 BP 132/80 08/09/24 09:53 Pulse Ox 94 08/09/24 09:53 Oxygen Delivery Method Room Air 08/09/24 09:53 BMI result Body Mass Index 37.1 Tobacco/Smoking Status: Tobacco use Status Tobacco use date assessed 08/09/24 08/09/24 10:04 Patient Tobacco Use Status Never used Tobacco 08/09/24 10:04 e-Cigarette/Vaping Use Never Used 08/09/24 10:04 PHQ-9: PHQ-9 Score PHQ-9: Total score 0 08/09/24 10:21 Depression Screening Interpretation: Negative Thrive Assessment: Date of Thrive Assessment Date Thrive assessed 08/09/24 08/09/24 10:04 Const General: no acute distress HENMT Head: Yes normal to inspection Ears: hearing grossly normal bilaterally General nose exam: Normal external nose present Mouth: Normal oral and palatal mucosa present Eyes General: appearance normal, both eyes and all related structures Neck Neck: Yes no lymphadenopathy and Yes supple Resp Effort & Inspection: normal respiratory effort Auscultation: clear to auscultation bilaterally Cardio Rhythm: regular rhythm Heart sounds: S1 normal heart sound present and S2 normal heart sound present GI Inspection: Yes normal to inspection Palpation (GI): Soft to palpation Percussion: Yes normal to percussion Auscultation: normal bowel sounds Coding Level of Care Code Est Pt Prev Care 40-64y(18072) Diagnoses HTN (hypertension) I10 Hyperlipidemia E78.5 Hypothyroidism E03.9 Hx of colonoscopy Z98.890 Additional Codes BERNICE-7 Assessment Billing - BERNICE-7 Assessment Tool: BERNICE-7 Assessment 70990 ([id number]) PHQ-9 - 88251 - PHQ-9 Billing: Yes ([id number]) Assessment & Plan Assessment & Plan (1) HTN (hypertension): Comment: Echocardiogram normal ejection fraction normal valves 02/2024 Code(s): I10 - Essential (primary) hypertension Category: Medical Plan: cont meds (2) Hyperlipidemia: Code(s): E78.5 - Hyperlipidemia, unspecified Category: Medical Plan: cont statin (3) Hypothyroidism: Code(s): E03.9 - Hypothyroidism, unspecified Category: Medical Plan: cont Levothroxine (4) Hx of colonoscopy: Comment: [place] 2018, polyps, 02/[address] Lafleur , ? path Code(s): Z98.890 - Other specified postprocedural states Category: Surgical Plan: refer to GI Orders: Orders Comprehensive [place]. Panel Fast 6 Months E03.9 - Hypothyroidism, unspecified, E78.5 - Hyperlipidemia, unspecified, I10 - Essential (primary) hypertension Complete Blood Count Auto Diff 6 Months E03.9 - Hypothyroidism, unspecified, E78.5 - Hyperlipidemia, unspecified, I10 - Essential (primary) hypertension TSH reflex Free T4 6 Months E03.9 - Hypothyroidism, unspecified, E78.5 - Hyperlipidemia, unspecified, I10 - Essential (primary) hypertension Hemoglobin A1c 6 Months E03.9 - Hypothyroidism, unspecified, E78.5 - Hyperlipidemia, unspecified, I10 - Essential (primary) hypertension Lipid Panel 6 Months E03.9 - Hypothyroidism, unspecified, E78.5 - Hyperlipidemia, unspecified, I10 - Essential (primary) hypertension Referrals Gastroenterology Referral Z98.890 - Other specified postprocedural states
== END 2024-08-09 11:03 | disposition home or self-care (01) ==
PROVIDERS: PCP Internal Medicine; Visit Provider Internal Medicine
DX: Z00.00 Encounter for general adult medical examination without abnormal findings (principal); I10 Essential (primary) hypertension; E78.5 Hyperlipidemia, unspecified; E03.9 Hypothyroidism, unspecified; Z98.890 Other specified postprocedural states

== ENCOUNTER → 2024-08-09 09:41 | Outpatient (BNVA) | payer OTHER, SELFPAY | PROVIDERS: PCP Internal Medicine; Visit Provider Internal Medicine | DX: Z00.00 Encounter for general adult medical examination without abnormal findings (principal); I10 Essential (primary) hypertension; E78.5 Hyperlipidemia, unspecified; E03.9 Hypothyroidism, unspecified; Z79.899 Other long term (current) drug therapy | CPT/HCPCS: 96127 ==

== ENCOUNTER 2025-04-01 11:01 | Outpatient (REF) | payer OTHER, SELFPAY ==
--- OUTSIDE RECORDS SUMMARY | 2024-11-24 09:20 | XMS_ITS ---
Author Organization [facility] Address [address] [place] [address] Care Team Providers Care Aerophysicist Name Role Phone Amber Pace MD Primary Care Provider Kevin Castrejon [phone] REASON FOR VISIT Patient presents today for OTHER SPECIFIED POST PROCEDURAL STATUS Encounters Encounter Location Date Provider Diagnosis [facility] [address] [place] [id number] 11/24/2024 Kevin Mi Plan Of Treatment Next Appt Details Provider Name:Kevin Kalen Hiwot , 04/14/2025 09:40:00 AM, [address], [address], [place], [address], Progress Notes * KIEL FOOTEDOB:1960 (64 yo F)Acc No.[id number]:11/24/2024 Progress Notes Patient: Papo GUIDRY KIEL Provider: Juliana Mi MD :1960 A ge:64 Y S ex:Female Date:11/24/2024 [facility] [id number] Pcp:Amber Pace MD Subjective: * Chief Complaints: [...] 0 11/24/2024 Generated for Mustapha osman/Channing/eTransmitting on: 06/01/2024 11:03 AM EST
--- OUTSIDE RECORDS SUMMARY | 2025-04-01 11:04 | XMS_ITS ---
Author Name [facility] Organization Unknown Care Team Organization Name Specialty Phone Email Start Date End Da te [facility] Termed, PROVIDER Primary Care 03/12/202212/03
--- OUTSIDE RECORDS SUMMARY | 2025-04-01 11:04 | XMS_ITS | Patient Health Record ---
Author Organization [facility] Address [address] [place] [address] Care Team Providers Care Broth Mixer Name Role Phone Amebr Pace MD Primary Care Provider Kevin Castrejon Unavailable [phone] Reason For Referral No Information Plan Of Treatment Next Appt Details Provider Name:Kevin Mi , 04/14/2025 09:40:00 AM, [address], [address], [place], [address], Insurance Providers Payer Name Payer Address Payer Phone Subscriber Number Group Number Insured Name Patient Relationship to Insured Coverage Start Date Coverage End Date [facility] [address] [place] [phone] [id number] KIEL RAMIREZ Self - patient is the insured
[2025-04-01 14:18] LABS: MANUAL DIFF FLAG NO
[2025-04-01 14:23] LABS: Hematocrit 43.7 % (37.0-47.0); Hemoglobin 14.3 g/dl (12.0-16.0); Imm Gran Abs Auto 0.02 X10*3/uL (0.00-0.03); Imm Gran Pct Auto 0.2 % (0.0-0.4); Lymphocytes Absolute Auto 2.7 X10*3/uL (1.2-4.9); Mean Corpuscular HGB Conc 32.7 g/dl (31.0-35.0); Mean Corpuscular Hemoglobin 29.8 pg (27.0-33.0); Mean Corpuscular Volume 91.0 fL (80.0-98.0); NRBC Abs Auto 0.000 X10*3/uL (0.0-0.012); NRBC Pct Auto 0.0 /100WBC (0.0-0.2); Platelet Count 312 X10*3/uL (160-400); Red Blood Count 4.80 X10*6/uL (4.20-5.50); White Blood Count 9.1 X10*3/uL (4.8-10.8)
[2025-04-01 14:35] LABS: Hemoglobin A1C 97.5626 umol/L
[2025-04-01 14:39] LABS: Alanine Aminotransferase 17 U/L (0-31); Albumin Level 4.6 g/dL (3.5-5.0); Alkaline Phosphatase 46 U/L (39-117); Anion Gap 13 (12-20); Aspartate Amino Transferase 20 U/L (5-31); Blood Urea Nitrogen 19 mg/dL (9-16); Calcium 9.5 mg/dL (8.4-10.2); Carbon Dioxide 24 mmol/L (22-29); Chloride 108 mmol/L (96-108); Cholesterol 195 mg/dL (<200); Estimated Glomerular Filt Rate > 60; HDL Cholesterol 63 mg/dL (>40); Potassium 4.2 mmol/L (3.3-5.1); Sodium 141 mmol/L (135-145); Total Protein 7.3 g/dL (6.5-8.0); Triglycerides 131 mg/dL (<150)
== END 2025-04-01 11:02 | disposition home or self-care (01) ==
LOC: HO.HMGCLDS 11:01
PROVIDERS: PCP Internal Medicine; Visit Provider Internal Medicine
DX: I10 Essential (primary) hypertension (principal); E03.9 Hypothyroidism, unspecified; E78.5 Hyperlipidemia, unspecified; Z13.1 Encounter for screening for diabetes mellitus
CPT/HCPCS: 36415; 80053; 80061; 83036; 84443; 85025

== ENCOUNTER 2025-04-04 12:10 | Outpatient (AMB) | payer OTHER, SELFPAY ==
--- OUTSIDE RECORDS SUMMARY | 2024-11-24 09:20 | XMS_ITS ---
Author Organization [facility] Address [address] [place] [address] Care Team Providers Care Carburetor Specialist Name Role Phone Amber Pace MD Primary Care Provider Kevin Castrejon [phone] REASON FOR VISIT Patient presents today for OTHER SPECIFIED POST PROCEDURAL STATUS Encounters Encounter Location Date Provider Diagnosis [facility] [address] [place] [address] 11/24/2024 Kevin Mi Plan Of Treatment Next Appt Details Provider Name:Kevin Kalen Hiwot , 04/14/2025 09:40:00 AM, [address], [address], [place], [address], Progress Notes * KIEL FOOTEDOB:1960 (64 yo F)Acc No.[id number]:11/24/2024 Progress Notes Patient: KIEL WHITAKER Provider: Juliana Mi MD :1960 A ge:64 Y S ex:Female Date:11/24/2024 Address:[address] [place], [place] [address] [facility] Pcp:Amber Pace MD Subjective: * Chief Complaints: * P atient presents today for OTHER SPECIFIED POST PROCEDURAL STATUS * The named appointment provid er may or may not be the originator of this progress note, and it is not deemed complete until electronically signed by the appointment provider. Sign off status: Pending * Provider: Juliana Mi MD Date: 0 11/24/2024 Generated for Mustapha osman/Channing/eTransmitting on: 1 06/05/2024 03:55 PM EST
[2025-04-04 12:20] VITALS: BP 122/78; PULSE 102; RESP 17; TEMP 36.8; O2SAT 95; BMI 37.8
--- NOTE | 2025-04-04 12:20 | A.OFFPC_ITS ---
Vital Signs 04/04/25 12:20 Height 5 ft 6 in Weight 234 lb BMI 37.8 BP 122/78 Blood Pressure Location Lt brachial Position Sitting Respiration 17 Pulse 102 H Pulse Source Pulse Oximeter Temp 98.2 F Temp Source Oral Pulse Oximetry (%) 95 Oxygen Delivery Method Room Air Intake Visit Reasons: med review Intake Note: Pt is here today for a follow up visit. Allergies lisinopril Adverse Reaction (Intermediate, Verified 04/04/25 12:31) Cough losartan Adverse Reaction (Intermediate, Verified 04/04/25 12:31) Cough Medication List - Last Reconciled 04/04/25 by Amber Pace MD citalopram 10 mg PO DAILY ergocalciferol (vitamin D2) (Vitamin D2) 1,250 mcg PO QWEEK fenofibrate nanocrystallized 145 mg PO DAILY levothyroxine 50 mcg PO DAILY metoprolol succinate ER 100 mg PO DAILY nifedipine ER 90 mg PO DAILY terazosin 20 mg (2 x 10 mg) PO BEDTIME triamterene-hydrochlorothiazid 37.5-25 mg 1 cap PO DAILY Tobacco use date assessed: 04/04/25 Dental Screening Dental Screen Date: 08/09/24 HPI med review HPI Details Pt presents for HTN, hypothyroid, hyperlipid, stable on meds. PFSH Medical History (Updated 04/04/25 @ 13:04 by Amber Pace MD) Normal breast exam Vitamin D deficiency Hypothyroidism Knee pain, right Hyperlipidemia HTN (hypertension) Hx of fracture of forearm Surgical History (Updated 04/04/25 @ 13:04 by Amber Pace MD) Hx of colonoscopy Family History Father Hypertension Mother Cancer of large intestine Social History Housing: House Patient Tobacco Use Status: Never used Tobacco e-Cigarette/Vaping Use: Never Used service: No Current occupational status: employed Cognitive needs: No Hearing needs: No Vision needs: No Questionnaire Thrive Questionnaire Date Thrive assessed: 08/09/24 BERNICE-7 AMB Questionnaire BERNICE-7 Date BERNICE - 7 assessed: 08/09/24 Source: Developed by Drs. Kevin Choudhary, Temi Mccauley, Boni Scanlon and colleagues, with an educational farzad from [employer]. Review of Systems Const All systems reviewed & are unremarkable except as noted in HPI and below Eyes Reports no additional complaints ENT Reports no additional complaints Card Reports no additional complaints Resp Reports no additional complaints GI Reports no additional complaints Physical exam (Primary Care) Vital Signs: Last Vital Signs Temp 98.2 F 04/04/25 12:20 Pulse 102 H 04/04/25 12:20 Resp 17 04/04/25 12:20 BP 122/78 04/04/25 12:20 Pulse Ox 95 04/04/25 12:20 Oxygen Delivery Method Room Air 04/04/25 12:20 BMI result Body Mass Index 37.8 Tobacco/Smoking Status: Tobacco use Status Tobacco use date assessed 04/04/25 04/04/25 12:34 Patient Tobacco Use Status Never used Tobacco 04/04/25 12:20 e-Cigarette/Vaping Use Never Used 04/04/25 12:20 Thrive Assessment: Date of Thrive Assessment Date Thrive assessed 08/09/24 04/04/25 12:20 Const General: no acute distress HENMT Head: Yes normal to inspection Face and sinus: Yes normal facial exam Mouth: Normal oral and palatal mucosa present Neck Neck: Yes supple Resp Effort & Inspection: normal respiratory effort Auscultation: clear to auscultation bilaterally Cardio Rhythm: regular rhythm Heart sounds: S1 normal heart sound present and S2 normal heart sound present GI Inspection: Yes normal to inspection Palpation (GI): Soft to palpation Percussion: Yes normal to percussion Auscultation: normal bowel sounds Coding Level of Care Code Est Pt Level 4 (41087) Diagnoses HTN (hypertension) I10 Hyperlipidemia E78.5 Hypothyroidism E03.9 Obesity E66.9 Hx of colonoscopy Z98.890 Assessment & Plan Assessment & Plan (1) HTN (hypertension): Comment: Echocardiogram normal ejection fraction normal valves 02/2024 Code(s): I10 - Essential (primary) hypertension Category: Medical Plan: cont meds (2) Hyperlipidemia: Code(s): E78.5 - Hyperlipidemia, unspecified Category: Medical Plan: cont fenofibrate (3) Hypothyroidism: Code(s): E03.9 - Hypothyroidism, unspecified Category: Medical Plan: Continue levothyroxine (4) Obesity: Code(s): E66.9 - Obesity, unspecified Category: Medical Plan: Decrease caloric intake increasing physical activity discussed with the patient (5) Hx of colonoscopy: Comment: [place] 2018, pt declined colonoscopy, Cologuard ordered 04/2025 Code(s): Z98.890 - Other specified postprocedural states Category: Surgical Plan: Patient declined colonoscopy Cologuard will be checked Orders: Orders Comprehensive [place]. Panel Fast 6 Months E03.9 - Hypothyroidism, unspecified, E55.9 - Vitamin D deficiency, unspecified, E78.5 - Hyperlipidemia, unspecified, I10 - Essential (primary) hypertension Hemoglobin A1c 6 Months E03.9 - Hypothyroidism, unspecified, E55.9 - Vitamin D deficiency, unspecified, E78.5 - Hyperlipidemia, unspecified, I10 - Essential (primary) hypertension MM screening mammo BI Today Z12.31 - Encounter for screening mammogram for malignant neoplasm of breast Lipid Panel 6 Months E03.9 - Hypothyroidism, unspecified, E55.9 - Vitamin D deficiency, unspecified, E78.5 - Hyperlipidemia, unspecified, I10 - Essential (primary) hypertension Complete Blood Count Auto Diff 6 Months E03.9 - Hypothyroidism, unspecified, E55.9 - Vitamin D deficiency, unspecified, E78.5 - Hyperlipidemia, unspecified, I10 - Essential (primary) hypertension TSH reflex Free T4 6 Months E03.9 - Hypothyroidism, unspecified, E55.9 - Vitamin D deficiency, unspecified, E78.5 - Hyperlipidemia, unspecified, I10 - Essential (primary) hypertension Referrals Cologuard Test Z12.11 - Encounter for screening for malignant neoplasm of colon, Z12.12 - Encounter for screening for malignant neoplasm of rectum
--- OUTSIDE RECORDS SUMMARY | 2025-04-04 15:56 | XMS_ITS | Patient Health Record ---
Author Organization [facility] Address [address] [place] [address] Care Team Providers Care Porcelain Buildup Assistant Name Role Phone Amber Pace MD Primary Care Provider Kevin Castrejon Unavailable [phone] Reason For Referral No Information Plan Of Treatment Next Appt Details Provider Name:Kevin Mi , 04/14/2025 09:40:00 AM, [address], [address], [place], [address], Insurance Providers Payer Name Payer Address Payer Phone Subscriber Number Group Number Insured Name Patient Relationship to Insured Coverage Start Date Coverage End Date [facility] [address] [facility] [phone] [id number] KIEL RAMIREZ Self - patient is the insured
== END 2025-04-04 13:08 | disposition home or self-care (01) ==
LOC: HO.HMCC 12:11
PROVIDERS: PCP Internal Medicine; Visit Provider Internal Medicine
DX: I10 Essential (primary) hypertension (principal); Z68.37 Body mass index [BMI] 37.0-37.9, adult; E78.5 Hyperlipidemia, unspecified; E66.9 Obesity, unspecified; E03.9 Hypothyroidism, unspecified; Z98.890 Other specified postprocedural states